=== PATIENT | male | born 1940 | race Caucasian/White ===

== ENCOUNTER 2023-03-27 07:24 | Emergency (ER) | payer OTHER ==
[~2023-03-27] VITALS: Ht 172.7 cm; Wt 79.5 kg
[2023-03-27 08:03] VITALS: BP 161/73; PULSE 65; RESP 16; TEMP 98.9; O2SAT 100
[2023-03-27] MEDS ORDERED: CEPH250C PO ×3 (08:05→09:47)
== END 2023-03-27 08:14 | disposition home or self-care (01) ==
LOC: ER 07:24
DX: S61.210A Laceration without foreign body of right index finger without damage to nail, initial encounter (principal); W27.0XXA Contact with workbench tool, initial encounter; Y93.89 Activity, other specified; Y92.89 Other specified places as the place of occurrence of the external cause; Y99.8 Other external cause status

== ENCOUNTER 2023-11-21 15:28 | Emergency (ER) | payer OTHER ==
[~2023-11-21] VITALS: Ht 170.2 cm; Wt 76.2 kg
[~2023-11-21 15:28] MED LIST: CEPH250C PO
[2023-11-21 16:49] VITALS: BP 117/74; PULSE 90; RESP 16; TEMP 98.8; O2SAT 99
[2023-11-21] MEDS: LIDOCAINE 2% JELLY 11ml (GLYDO) UR ONE (17:57)
[2023-11-21] MEDS ORDERED: BACDST PO (18:01)
== END 2023-11-21 18:06 | disposition home or self-care (01) ==
LOC: ER 15:28
DX: N39.0 Urinary tract infection, site not specified (principal); Z46.6 Encounter for fitting and adjustment of urinary device
CPT/HCPCS: 51702; 81002